=== PATIENT | female | born 1950 | race African-American/Black ===

== ENCOUNTER 2016-09-02 15:26 | Observation (INO) | payer OTHER ==
[~2016-09-02] VITALS: Ht 167.6 cm; Wt 83.1 kg
[~2016-09-02 15:26] MED LIST: AMLODIPINE BESY10 MG; AMLODIPINE BESY10 MG PO; AMLODIPINE-BEN1 EACH PO; ATARAX,VISTARIL50 MG PO; BENTYL10 MG PO; CIPRO500 MG PO; COMPAZINE5 MG PO; FLAGYL500 MG PO; FLONASE16 G1 BOTH NARES; FLUTICASONE PRO16 GM BOTH NARES; HYDROXYZINE HCL50 MG PO; LISINOPRIL2.5 MG PO; LOPRESSOR HC1 TABLET PO; LOPRESSOR100 M1 PO; METFORMIN HCL500 M1 PO; METOPROLOL TAR100 MG PO; MOBIC7.5 MG PO; MORPHINE SULFAT15 M1 PO; MS CONTIN,ORAMO15 M1 PO; NABUMETONE750 MG PO; OMEPRAZOLE40 M1 PO; ONDANSETRON HCL4 MG PO; OXYCODONE HCL10 MG PO; PRAVACHOL80 MG PO; TRAVATAN Z5 ML BOTH EYES; ZETIA10 MG PO; ZOFRAN ODT4 MG PO; ZOFRAN4 MG PO
[2016-09-02 16:14] LABS: HEMATOCRIT 38.1 % (36.0-46.0); MCH 26.4 PG (29.0-34.0); MCHC 33.6 G/DL (30.0-36.0); MCV 78.7 FL (83-99); MEAN PLAT.VOLUME 9.6 uM^3 (9.5-12.4); PLATELET COUNT 354 K/uL (156-360); RBC DIS.WIDTH-SD 44.7 % (39-53); RED BLOOD COUNT 4.84 M/uL (3.80-5.20); WHITE BLOOD COUNT 9.3 K/uL (4.1-10.2)
[2016-09-02 16:25] LABS: CHLORIDE 101 mEq/L (99-109); POTASSIUM 3.9 mEq/L (3.7-5.4); SODIUM 135 mEq/L (136-147)
[2016-09-02 16:27] LABS: GLUCOSE 88 mg/dL (70-99)
[2016-09-02 16:29] LABS: ANION GAP 14 MEQ/L (2-14); TOTAL BILIRUBIN 0.5 mg/dL (0.0-1.0)
[2016-09-02 16:31] LABS: ALKALINE PHOSPHATASE 73 IU/L (3-129); GFR ESTIMATE (CALCULATED) 27 mL/min/
[2016-09-02 16:32] LABS: UREA NITROGEN (BUN) 15 mg/dL (9-23)
[2016-09-02 16:33] LABS: DIRECT BILIRUBIN 0.1 mg/dL (0.0-0.3)
[2016-09-02 16:34] LABS: LIPASE 13 U/L (1.0-51.0); TROP-I INTERPRETATION NEGATIVE; TROPONIN-I 0.07 ng/mL (0.0-0.30)
[2016-09-02] MEDS ORDERED: BENTYL10 MG PO (19:01)
[2016-09-02 23:30] LABS: TROP-I INTERPRETATION NEGATIVE; TROPONIN-I 0.04 ng/mL (0.0-0.30)
[2016-09-03 05:19] LABS: CHLORIDE 105 mEq/L (99-109); POTASSIUM 3.8 mEq/L (3.7-5.4); SODIUM 138 mEq/L (136-147)
[2016-09-03 05:21] LABS: GLUCOSE 99 mg/dL (70-99)
[2016-09-03 05:22] LABS: ANION GAP 8 MEQ/L (2-14)
[2016-09-03 05:23] LABS: TOTAL BILIRUBIN 0.5 mg/dL (0.0-1.0)
[2016-09-03 05:24] LABS: ALKALINE PHOSPHATASE 65 IU/L (3-129)
[2016-09-03 05:25] LABS: GFR ESTIMATE (CALCULATED) 48 mL/min/
[2016-09-03 05:26] LABS: DIRECT BILIRUBIN 0.1 mg/dL (0.0-0.3); UREA NITROGEN (BUN) 16 mg/dL (9-23)
[2016-09-03 05:29] LABS: TROP-I INTERPRETATION NEGATIVE; TROPONIN-I 0.04 ng/mL (0.0-0.30)
[2016-09-03 05:51] LABS: EOSINOPHIL (%) 6.9 % (0-5); EOSINOPHIL COUNT 0.5 K/uL (0-0.3); HEMATOCRIT 35.3 % (36.0-46.0); IMMATURE GRANULOCYTE (%) 0.3 % (0.0-0.7); IMMATURE GRANULOCYTE COUNT 0.2 K/uL; LYMPHOCYTE COUNT 3.1 K/uL (1.0-2.8); MCH 26.5 PG (29.0-34.0); MCHC 33.4 G/DL (30.0-36.0); MCV 79.1 FL (83-99); MEAN PLAT.VOLUME 9.6 uM^3 (9.5-12.4); MONOCYTE (%) 6.9 % (3-12); MONOCYTE COUNT 0.5 K/uL (0-0.8); NEUTROPHIL (%) 45.3 % (45-76); NEUTROPHIL COUNT 3.5 K/uL (1.8-6.4); PLATELET COUNT 331 K/uL (156-360); RBC DIS.WIDTH-CV 15.8 % (11.8-14.6); RBC DIS.WIDTH-SD 44.2 % (39-53); RED BLOOD COUNT 4.46 M/uL (3.80-5.20); WHITE BLOOD COUNT 7.7 K/uL (4.1-10.2)
[2016-09-03 08:59] VITALS: BP 139/66
[2016-09-03 12:45] VITALS: BP 129/85
[2016-09-03] MEDS ORDERED: METOPROLOL TAR100 MG PO (13:12)
[2016-09-03] MEDS ORDERED: ATORVASTATIN CA10 MG PO (13:16)
== END 2016-09-03 14:24 | disposition home or self-care (01) ==
LOC: EME 15:26 → EDOF 19:27 → 5WEST 09-03 08:24
PROVIDERS: Emergency Medicine; Physician Assistant
DX: N17.9 Acute kidney failure, unspecified (principal); I10 Essential (primary) hypertension; R55 Syncope and collapse; R07.9 Chest pain, unspecified; E11.9 Type 2 diabetes mellitus without complications; E78.5 Hyperlipidemia, unspecified; I25.10 Atherosclerotic heart disease of native coronary artery without angina pectoris; I25.84 Coronary atherosclerosis due to calcified coronary lesion; E66.9 Obesity, unspecified; Z68.29 Body mass index [BMI] 29.0-29.9, adult; Z91.14 Patient's other noncompliance with medication regimen; Z82.49 Family history of ischemic heart disease and other diseases of the circulatory system; Z82.0 Family history of epilepsy and other diseases of the nervous system
CPT/HCPCS: 70450; 80048; 80076; 83690; 84484; 85025; 85027; 93005; 99281; 99285; G0378; J1644; J7030

== ENCOUNTER 2017-08-01 11:37 | Emergency (ER) | payer OTHER ==
[~2017-08-01] VITALS: Ht 167.6 cm; Wt 62.3 kg
[~2017-08-01 11:37] MED LIST changes: +ATORVASTATIN CA10 MG PO
[2017-08-01 12:06] VITALS: BP 184/79
[2017-08-01] MEDS ORDERED: TRAMADOL HCL50 MG PO (12:48)
[2017-08-01] MEDS ORDERED: PEN-VEE K,VEET500 MG PO (12:48)
[2017-08-01] MEDS ORDERED: PERIDEX473 ML MM (12:48)
== END 2017-08-01 13:10 | disposition home or self-care (01) ==
LOC: EME 11:37
DX: K08.89 Other specified disorders of teeth and supporting structures (principal); I10 Essential (primary) hypertension; E78.5 Hyperlipidemia, unspecified; Z85.43 Personal history of malignant neoplasm of ovary
CPT/HCPCS: 99281; 99283